=== PATIENT | female | born 1970 ===

== ENCOUNTER 2022-05-11 04:42 | Emergency (ER) | payer SELFPAY ==
[~2022-05-11 04:42] MED LIST: HYDROcodone/Acetaminophen 5/325 mg Tablet ONE; Ibuprofen 200 MG TAB ONE
== END 2022-05-11 05:00 | disposition home or self-care (01) ==
LOC: CSHERS 04:42
DX: S92.354A Nondisplaced fracture of fifth metatarsal bone, right foot, initial encounter for closed fracture (principal); W22.8XXA Striking against or struck by other objects, initial encounter